=== PATIENT | male | born 1985 | race African-American/Black ===

== ENCOUNTER 2019-08-14 07:10 | Emergency (ER) | payer OTHER ==
[2019-08-14 08:06] VITALS: BP 117/91; PULSE 73; TEMP 98.4; BMI 32.3
--- NOTE | 2019-08-14 08:53 | PDOC ---
History of Present Illness - General Chief Complaint: Edema Stated Complaint: RIGHT HAND FINGER SWELLING Time Seen by Provider: 08/14/19 08:13 History Source: Patient Exam Limitations: No Limitations Past History - Past Medical History Allergies/Adverse Reactions: Allergies Allergy/AdvReac Type Severity Reaction Status Date / Time No Known Allergies Allergy Verified 08/14/19 08:05 Home Medications: Ambulatory Orders No Home Medications 0 dose .ROUTE UTDICT 11/24/13 COPD: No - Immunization History Immunization Up to Date: Yes - Psycho Social/Smoking Cessation Hx Smoking History: Never smoked Information on smoking cessation initiated: No Hx Alcohol Use: No Drug/Substance Use Hx: No (MARIJUANA) *Physical Exam - Vital Signs Last Vital Signs Temp Pulse Resp BP Pulse Ox 98.4 F 73 18 117/91 100 08/14/19 08:03 08/14/19 08:03 08/14/19 08:03 08/14/19 08:03 08/14/19 08:03 - Physical Exam General Appearance: No: Apparent Distress Extremity: positive: Other (+R ring finger paronychia; no evidence of felon, no erythema, no warmth, no streaking) Integumentary: negative: Erythema, Ecchymosis, Bruising Neurologic: positive: Alert Procedures - Incision and Drainage I&D Site: Right: Paronychia Betadine cleansed: Yes Blade Size: 11 Attempts: 1 Complications: none Medical Decision Making - Medical Decision Making 34 y/o M with no sig pmh presents with R ring finger infection x 6 days. Denies fever, redness, streaking, drainage R ring finger paronychia - I&D done with purulent drainage expressed 08/14/19 08:50 Discharge - Discharge Information Problems reviewed: Yes Clinical Impression/Diagnosis: Paronychia Disposition: HOME - Admission No - Additional Discharge Information Prescription Drug Monitoring Program (I-STOP) results: I-STOP not reviewed - Follow up/Referral - Patient Discharge Instructions Patient Printed Discharge Instructions: DI for Paronychia Additional Instructions: Thank you for choosing [facility]. It was a pleasure taking care of you. You were seen here for infection along right nail, which was drained Avoid picking on fingers Recommend warm compresses/soaks 2-3x a day You may apply some Neosporin over site Follow-up with your doctor in 2 days Return to the Emergency Department if your symptoms worsen or persist, you have fever, increased swelling, redness, streaking or other concerning symptoms. - Post Discharge Activity
== END 2019-08-14 09:09 | disposition home or self-care (01) ==
LOC: JER 07:10 → JERFT 07:10
PROC: 0J9J0ZZ Drainage of Right Hand Subcutaneous Tissue and Fascia, Open Approach (ICD-10-PCS; principal; 2019-08-14)
DX: L03.011 Cellulitis of right finger (principal)
CPT/HCPCS: 99281-25

== ENCOUNTER 2021-09-23 21:19 | Emergency (ER) | payer OTHER ==
[2021-09-23 21:35] VITALS: BP 121/71; PULSE 79; TEMP 97; BMI 33.0
[2021-09-23] MEDS ORDERED: IBUPROFEN 600 MG TABLET (FP) PO ONE (23:01)
== END 2021-09-23 23:18 | disposition home or self-care (01) ==
LOC: JER 21:19
DX: L03.012 Cellulitis of left finger (principal)
CPT/HCPCS: 99283-25